=== PATIENT | female | born 2000 | race Caucasian/White ===

== ENCOUNTER 2022-03-18 22:10 | Emergency (ER) | payer SELFPAY ==
[~2022-03-18] VITALS: Ht 167.6 cm; Wt 61.2 kg
[2022-03-18 23:34] VITALS: BP 135/65
[2022-03-18] MEDS ORDERED: IBUPROFEN 400 MG TABLET ONE (23:59)
[2022-03-19] MEDS ORDERED: IBUPROFEN 400 MG TABLET PO ONE
== END 2022-03-19 00:49 | disposition home or self-care (01) ==
LOC: ER 22:11
DX: S83.004A Unspecified dislocation of right patella, initial encounter (principal); Z60.2 Problems related to living alone; Z91.010 Allergy to peanuts; X50.1XXA Overexertion from prolonged static or awkward postures, initial encounter; Y93.89 Activity, other specified; Y92.89 Other specified places as the place of occurrence of the external cause; Y99.8 Other external cause status
CPT/HCPCS: 73564-TC